=== PATIENT | female | born 1990 | race American Indian/Alaskan Native ===

== ENCOUNTER 2019-07-11 09:37 | Emergency (ER) | payer SELFPAY ==
[2019-07-11 09:42] VITALS: BP 125/76
[2019-07-11 10:16] LABS: Basophils % (Auto) 0.4 % (0.0-1.8); Eosinophils # (Auto) 0.1 K/mm3 (0.0-0.4); Eosinophils % (Auto) 0.7 % (0.0-4.3); Hematocrit 43.8 % (30.3-42.9); Hemoglobin 14.8 gm/dl (10.1-14.3); Lymphocytes # (Auto) 1.6 K/mm3 (1.2-5.4); Lymphocytes % (Auto) 14.4 % (13.4-35.0); Mean Corpuscular HGB Conc 34 % (30-34); Mean Corpuscular Volume 89 fl (79-97); Monocytes # (Auto) 0.7 K/mm3 (0.0-0.8); Monocytes % (Auto) 6.1 % (0.0-7.3); Platelet Count 282 K/mm3 (140-440); Red Blood Count 4.94 M/mm3 (3.65-5.03); Red Cell Distribution Width 13.3 % (13.2-15.2)
[2019-07-11] MEDS ORDERED: KETOROLAC 30 MG/1 ML INJ IM ONE (10:22)
[2019-07-11] MEDS ORDERED: HYDROcodone/ACETAMINOPHEN 5-325 MG TAB PO ONE (10:22)
--- NOTE | 2019-07-11 10:22 | Emergency Department Report ---
ED Female HPI - General Chief complaint: Vaginal Bleeding Stated complaint: ABD PAIN/VAGINAL BLEEDING 3 WKS Time Seen by Provider: 07/11/19 10:15 Source: patient Mode of arrival: Ambulatory Limitations: No Limitations - History of Present Illness Initial comments: Sandra is a 28 yo female with hx of severe menstrual cramps and irregular bleeding. She has had severe cramping iwth vaginal bleeding in the pelvic region since Sunday. Ibuprofen 400 mg dose takes away the pain. However the pain returns. Her mother had history of endometriosis. She says that she may have endometriosis. She has never been although she has had unprotect ed sex with her boyfriend for the last 5 years. Pain radiates to the back. MD Complaint: vaginal bleeding, pelvic pain -: Gradual, days(s) Severity: moderate Quality: cramping Consistency: constant Improves with: none Worsens with: none Are you Now?: No Associated Symptoms: vaginal bleeding - Related Data Previous Rx's Medication Instructions Recorded Last Taken Type traMADoL [Ultram 50 MG tab] 50 mg PO Q6HR PRN #10 tablet 07/11/19 Unknown Rx Allergies Allergy/AdvReac Type Severity Reaction Status Date / Time amoxicillin AdvReac Swelling Verified 07/11/19 09:38 ED Review of Systems ROS: Stated complaint: ABD PAIN/VAGINAL BLEEDING 3 WKS Other details as noted in HPI Comment: All other systems reviewed and negative Constitutional: denies: fever, malaise Respiratory: denies: cough Gastrointestinal: abdominal pain. denies: nausea, vomiting Genitourinary: abnormal menses ED Past Medical Hx - Past Medical History Previous Medical History?: Yes Hx Psychiatric Treatment: Yes (anxiety, bipolar) - Surgical History Past Surgical History?: No - Family History Family history: diabetes, other (mother has history of endometriosis) - Social History Smoking Status: Former Smoker Substance Use Type: None - Medications Home Medications: Home Medications Medication Instructions Recorded Confirmed Last Taken Type traMADoL [Ultram 50 MG tab] 50 mg PO Q6HR PRN #10 tablet 07/11/19 Unknown Rx ED Physical Exam - General Limitations: No Limitations General appearance: alert, in no apparent distress, other (appears well sitting crosslegged on stretcher ) - Head Head exam: Present: atraumatic, normocephalic - Eye Eye exam: Present: normal appearance - ENT ENT exam: Present: mucous membranes moist - Neck Neck exam: Present: normal inspection, full ROM. Absent: tenderness, m eningismus - Respiratory Respiratory exam: Present: normal lung sounds bilaterally. Absent: respiratory distress, rales, rhonchi - Cardiovascular Cardiovascular Exam: Present: regular rate, normal rhythm, normal heart sounds. Absent: systolic murmur, diastolic murmur, rubs, gallop - GI/Abdominal GI/Abdominal exam: Present: soft, normal bowel sounds. Absent: distended, tenderness, guarding, rebound - Extremities Exam Extremities exam: Present: normal inspection - Neurological Exam Neurological exam: Present: alert, oriented X3 - Psychiatric Psychiatric exam: Present: normal affect, normal mood - Skin Skin exam: Present: warm, dry, intact, normal color. Absent: rash ED Course Vital Signs 07/11/19 09:40 Temperature 97.8 F Pulse Rate 74 Respiratory 16 Rate Blood Pressure 125/76 O2 Sat by Pulse 98 Oximetry ED Medical Decision Making - Lab Data Result diagrams: 07/11/19 10:05 Laboratory Results - last 24 hr 07/11/19 07/11/19 10:05 10:05 WBC 11.1 H RBC 4.94 Hgb 14.8 H Hct 43.8 H MCV 89 MCH 30 MCHC 34 RDW 13.3 Plt Count 282 Lymph % (Auto) 14.4 Pepin % (Auto) 6.1 Eos % (Auto) 0.7 Baso % (Auto) 0.4 Lymph # 1.6 Pepin # 0.7 Eos # 0.1 Baso # 0.0 Seg Neutrophils % 78.4 H Seg Neutrophils # 8.7 H HCG, Qual Negative - Medical Decision Making Ms. Cisse appears well. CBC within normal limits. No abdominal tenderness on exam. Serum test is negative. Differential diagnosis includes: Dysmenorrhea, endometriosis, uterine fibroids, ovarian cysts. I do not suspect appendicitis, PID, ovarian torsion after my physical exam and history taking. Referred to make up man. Referred to outside clinic. She verbalized understanding of return precautions. Critical care attestation.: If time is entered above; I have spent that time in minutes in the direct care of this critically ill patient, excluding procedure time. ED Disposition Clinical Impression: Dysmenorrhea, Dysfunctional uterine bleeding Disposition: - TO HOME OR SELFCARE Is pt being admited?: No Does the pt Need Aspirin: No Condition: Stable Instructions: Dysfunctional Uterine Bleeding (ED), Dysmenorrhea (ED) Prescriptions: traMADoL [Ultram 50 MG tab] 50 mg PO Q6HR PRN #10 tablet PRN Reason: Pain Referrals: FLAKITA SALEEM MD [Staff Physician] - 3-[facility] Days [facility] - [facility]-5 Days Forms: Work/School Release Form(ED)
[2019-07-11 11:16] LABS: Bacteria,Urine 1+ /HPF (Negative); Bilirubin,Urine NEG (Negative); Blood,Urine MOD (Negative); Color,Urine Yellow (Yellow); Mucus,Urine FEW /HPF; Urobilinogen,Urine < 2.0 mg/dL (<2.0)
[2019-07-11 11:21] LABS: WBC,Urine > 182.0 /HPF (0.0-6.0)
== END 2019-07-11 11:25 | disposition home or self-care (01) ==
LOC: ED 09:37
DX: N94.6 Dysmenorrhea, unspecified (principal); F41.9 Anxiety disorder, unspecified; F31.9 Bipolar disorder, unspecified; Z87.891 Personal history of nicotine dependence; Z79.899 Other long term (current) drug therapy; Z88.1 Allergy status to other antibiotic agents
CPT/HCPCS: 36415; 81001; 84703; 85025; 96372; 99283; J1885

== ENCOUNTER 2020-08-23 16:31 | Emergency (ER) | payer SELFPAY ==
[2020-08-23 17:39] VITALS: BP 121/44
--- NOTE | 2020-08-23 18:07 | Event Note ---
ED Screening Note Date of service: 08/23/20 Time: 18:06 ED Screening Note: 30-year-old -Senegales[place] female presents to the emergency room complaining of pelvic pain spotting and now vaginal bleeding since June 2020. Patient states she has been taking ibuprofen 800 mg. Patient denies any nausea no vomiting no fever no chills and no vaginal discharge. Patient states that he started off spotting and now she is going through about 6 pads a day. Patient has never been . She has a past medical history of anxiety and bipolar currently on no medications. She denies any SI or HI. She has never been institutionalized. She does not have a primary care provider or VP SALES provider and is not followed by mental health. This initial assessment/diagnostic orders/clinical plan/treatment(s) is/are subject to change based on patients health status, clinical progression and re- assessment by fellow clinical providers in the ED. Further treatment and workup at subsequent clinical providers discretion. Patient/guardian urged not to elope from the ED as their condition may be serious if not clinically assessed and managed. Initial orders include:
[2020-08-23 18:56] LABS: Basophils # (Auto) 0.1 K/mm3 (0.0-0.1); Basophils % (Auto) 0.6 % (0.0-1.8); Eosinophils # (Auto) 0.2 K/mm3 (0.0-0.4); Eosinophils % (Auto) 1.9 % (0.0-4.3); Hematocrit 42.3 % (30.3-42.9); Hemoglobin 14.1 gm/dl (10.1-14.3); Lymphocytes # (Auto) 3.6 K/mm3 (1.2-5.4); Lymphocytes % (Auto) 37.6 % (13.4-35.0); Mean Corpuscular HGB Conc 33 % (30-34); Mean Corpuscular Volume 90 fl (79-97); Monocytes # (Auto) 0.8 K/mm3 (0.0-0.8); Monocytes % (Auto) 7.9 % (0.0-7.3); Platelet Count 285 K/mm3 (140-440); Red Blood Count 4.73 M/mm3 (3.65-5.03); Red Cell Distribution Width 13.1 % (13.2-15.2)
[2020-08-23 19:00] LABS: Bilirubin,Urine NEG (Negative); Blood,Urine LG (Negative); Color,Urine Yellow (Yellow); Mucus,Urine 3+ /HPF
[2020-08-23 19:08] LABS: Alanine Aminotransferase 9 units/L (7-56); Albumin 4.4 g/dL (3.9-5); Blood Urea Nitrogen 9 mg/dL (7-17); Hemolysis Index 31
[2020-08-23 19:10] LABS: BUN/Creatinine Ratio 15
--- NOTE | 2020-08-23 19:39 | Emergency Department Report ---
ED Female HPI - General Chief complaint: Vaginal Bleeding Stated complaint: MENSTRAL PAIN/BLEEDING SINCE JUNE Time Seen by Provider: 08/23/20 18:05 Source: patient Mode of arrival: Ambulatory Limitations: No Limitations - History of Present Illness Initial comments: 30-year-old -Moroc[place] female presents to the emergency room complaining of pelvic pain spotting and now vaginal bleeding since June 2020. Patient states she has been taking ibuprofen 800 mg. Patient denies any nausea no vomiting no fever no chills and no vaginal discharge. Patient states that he started off spotting and now she is going through about 6 pads a day. Patient has never been . She has a past medical history of anxiety and bipolar currently on no medications. She denies any SI or HI. She has never been institutionalized. She does not have a primary care provider or [facility] provider and is not followed by mental health. Onset/Timin -: month(s) Location: suprapubic Severity: mild Quality: cramping Consistency: intermittent Improves with: none Worsens with: none Are you Now?: No Last Menstrual Period: 06/06/20 EDC: 03/13/21 Associated Symptoms: vaginal bleeding, abdominal pain. denies: vaginal discharge, nausea/vomiting, fever/chills, headaches, dysuria, shortness of breath, weakness - Related Data : 0 Previous Rx's Medication Instructions Recorded Last Taken Type traMADoL [Ultram 50 MG tab] 50 mg PO Q6HR PRN #10 tablet 07/11/19 Unknown Rx Allergies Allergy/AdvReac Type Severity Reaction Status Date / Time amoxicillin AdvReac Swelling Verified 07/11/19 09:38 ED Review of Systems ROS: Stated complaint: MENSTRAL PAIN/BLEEDING SINCE JUNE Other details as noted in HPI Comment: All other systems reviewed and negative ED Past Medical Hx - Past Medical History Previous Medical History?: No Hx Psychiatric Treatment: Yes (anxiety, bipolar) - Surgical History Past Surgical History?: No - Social History Smoking Status: Never Smoker - Medications Home Medications: Home Medications Medication Instructions Recorded Confirmed Last Taken Type traMADoL [Ultram 50 MG tab] 50 mg PO Q6HR PRN #10 tablet 07/11/19 Unknown Rx ED Physical Exam - General Limitations: No Limitations General appearance: alert - Head Head exam: Present: atraumatic, normocephalic - Eye Eye exam: Present: normal appearance - ENT ENT exam: Present: mucous membranes moist - Neck Neck exam: Present: normal inspection - Respiratory Respiratory exam: Present: normal lung sounds bilaterally. Absent: respiratory distress - Cardiovascular Cardiovascular Exam: Present: regular rate, normal rhythm. Absent: systolic murmur, diastolic murmur, rubs, gallop - GI/Abdominal GI/Abdominal exam: Present: soft, normal bowel sounds ED Course Vital Signs 08/23/20 17:33 Temperature 98.2 F Pulse Rate 64 Respiratory 20 Rate Blood Pressure 121/44 O2 Sat by Pulse 99 Oximetry ED Medical Decision Making - Lab Data Result diagrams: 08/23/20 18:28 08/23/20 18:28 - Medical Decision Making 30-year-old -[place]oc[place] female presents to the emergency room complaining of pelvic pain spotting and now vaginal bleeding since June 2020. Patient states she has been taking ibuprofen 800 mg. Patient denies any nausea no vomiting no fever no chills and no vaginal discharge. Patient states that he started off spotting and now she is going through about 6 pads a day. Patient has never been . She has a past medical history of anxiety and bipolar currently on no medications. She denies any SI or HI. She has never been institutionalized. She does not have a primary care provider or [facility] CONTROL [facility]IST provider and is not followed by mental health. Labs are stable and nonactionable. Patient can follow-up with S[facility] CONTROL SPECIALIST. Critical care attestation.: If time is entered above; I have spent that time in minutes in the direct care of this critically ill patient, excluding procedure time. ED Disposition Clinical Impression: Dysmenorrhea, unspecified Disposition: - TO HOME OR SELFCARE Is pt being admited?: No Does the pt Need Aspirin: No Condition: Stable Instructions: Dysmenorrhea, [id number] Additional Instructions: Labs are all negative urinalysis is negative. There is no signs of anemia negative recommend to follow-up with a SENIOR [facility] CONTROL SPECIALIST or primary care provider. Can take Tylenol or ibuprofen as needed for pain. Referrals: PRIMARY CARE [Primary Care Provider] - 3-5 Days [facility] [Provider Group] - 3-5 Days [facility] [Provider Group] - 3-5 Days [facility] [Provider Group] - 3-5 Days Forms: Work/School Release Form(ED)
== END 2020-08-23 19:45 | disposition home or self-care (01) ==
LOC: ED 16:31
DX: N94.6 Dysmenorrhea, unspecified (principal); F41.9 Anxiety disorder, unspecified; F31.9 Bipolar disorder, unspecified; Z79.899 Other long term (current) drug therapy; Z88.2 Allergy status to sulfonamides
CPT/HCPCS: 36415; 80053; 81001; 84702; 85025; 99283

== ENCOUNTER 2020-08-25 16:10 | Emergency (ER) | payer SELFPAY ==
--- NOTE | 2020-08-25 16:42 | Emergency Department Report ---
Blank Doc - Documentation Documentation: 30-year-old female that presents with abdominal pain with nausea vomiting. 1- This initial assessment/diagnostic orders/clinical plan/ treatment(s) is/are subject to change based on pt's health status, clinical progression and re- assessment by fellow clinical providers in the ED. Further treatment and workup at subsequent clinical provers discretion. Patient/guardians urged not to elope from ED as their condition may be serious if not clinically assessed and managed. 2-labs 3-UA
[2020-08-25 18:17] LABS: Bilirubin,Urine NEG (Negative); Blood,Urine LG (Negative); Color,Urine Yellow (Yellow); Mucus,Urine FEW /HPF
[2020-08-25] MEDS ORDERED: SODIUM CHLORIDE 0.9% 1000 ML 1,000 ML IV ONE (21:08)
[2020-08-25] MEDS ORDERED: ONDANSETRON 4 MG/2 ML INJ IV STA ×2 (21:08→23:58)
[2020-08-25 21:16] LABS: Basophils % (Auto) 0.4 % (0.0-1.8); Hemoglobin 14.5 gm/dl (10.1-14.3); Lymphocytes # (Auto) 0.9 K/mm3 (1.2-5.4); Mean Corpuscular HGB Conc 35 % (30-34); Mean Corpuscular Volume 89 fl (79-97); Monocytes # (Auto) 0.4 K/mm3 (0.0-0.8); Monocytes % (Auto) 4.8 % (0.0-7.3); Platelet Count 269 K/mm3 (140-440); Red Blood Count 4.75 M/mm3 (3.65-5.03); Red Cell Distribution Width 12.6 % (13.2-15.2)
--- NOTE | 2020-08-25 21:22 | Emergency Department Report ---
ED Abdominal Pain HPI - General Chief Complaint: Nausea/Vomiting/Diarrhea Stated Complaint: FOOD POISONING Time Seen by Provider: 08/25/20 16:29 Source: patient Mode of arrival: Ambulatory Limitations: No Limitations - History of Present Illness MD Complaint: abdominal pain - Related Data Previous Rx's Medication Instructions Recorded Last Taken Type traMADoL [Ultram 50 MG tab] 50 mg PO Q6HR PRN #10 tablet 07/11/19 Unknown Rx Acetaminophen/Codeine [Tylenol #3] 1 tab PO Q6H PRN #15 tab 08/25/20 Unknown Rx Ondansetron [Zofran ODT TAB] 8 mg PO Q12HR #14 tab.rapdis 08/25/20 Unknown Rx Allergies Allergy/AdvReac Type Severity Reaction Status Date / Time amoxicillin AdvReac Swelling Verified 08/25/20 16:31 ED Review of Systems ROS: Stated complaint: FOOD POISONING Other details as noted in HPI Comment: All other systems reviewed and negative ED Past Medical Hx - Past Medical History Hx Psychiatric Treatment: Yes (anxiety, bipolar) - Surgical History Past Surgical History?: No - Social History Smoking Status: Never Smoker - Medications Home Medications: Home Medications Medication Instructions Recorded Confirmed Last Taken Type traMADoL [Ultram 50 MG tab] 50 mg PO Q6HR PRN #10 tablet 07/11/19 Unknown Rx Acetaminophen/Codeine [Tylenol #3] 1 tab PO Q6H PRN #15 tab 08/25/20 Unknown Rx Ondansetron [Zofran ODT TAB] 8 mg PO Q12HR #14 tab.rapdis 08/25/20 Unknown Rx ED Physical Exam - General Limitations: No Limitations General appearance: alert, in no apparent distress - Head Head exam: Present: atraumatic, normocephalic - Eye Eye exam: Present: normal appearance - ENT ENT exam: Present: mucous membranes moist - Neck Neck exam: Present: normal inspection - Respiratory Respiratory exam: Present: normal lung sounds bilaterally. Absent: respiratory distress - Cardiovascular Cardiovascular Exam: Present: regular rate, normal rhythm. Absent: systolic murmur, diastolic murmur, rubs, gallop - GI/Abdominal GI/Abdominal exam: Present: soft, tenderness, normal bowel sounds, other (Vague diffuse tenderness no tenderness at McBurney's, no Campbell sign,). Absent: guarding, hyperactive bowel sounds, organomegaly - Extremities Exam Extremities exam: Present: normal inspection - Back Exam Back exam: Present: normal inspection - Neurological Exam Neurological exam: Present: alert, oriented X3 - Psychiatric Psychiatric exam: Present: normal affect, normal mood - Skin Skin exam: Present: warm, dry, intact, normal color. Absent: rash ED Course Vital Signs 08/25/20 08/25/20 16:34 16:35 Temperature 99.3 F Pulse Rate 86 Respiratory 18 Rate Blood Pressure 122/72 O2 Sat by Pulse 95 Oximetry Critical care attestation.: If time is entered above; I have spent that time in minutes in the direct care of this critically ill patient, excluding procedure time. ED Disposition Condition: Stable Referrals: PRIMARY CARE, [Primary Care Provider] - 3-5 Days
[2020-08-25 21:38] LABS: Alanine Aminotransferase 10 units/L (7-56); Albumin 4.9 g/dL (3.9-5); Blood Urea Nitrogen 13 mg/dL (7-17); Calcium 9.3 mg/dL (8.4-10.2); Hemolysis Index 4
[2020-08-25 21:39] LABS: BUN/Creatinine Ratio 26
[2020-08-25] MEDS ORDERED: MORPHINE 4 MG/1 ML INJ IV STA (22:06)
[2020-08-25] MEDS ORDERED: LORazepam 2 MG/ML VIAL IV ONE (22:06)
[2020-08-25 22:22] VITALS: BP 108/77
--- NOTE | 2020-08-25 22:56 | XRay Report ---
CHEST 2 VIEWS INDICATION / CLINICAL INFORMATION: sob. COMPARISON: 06/03/2007. FINDINGS: SUPPORT DEVICES: None. HEART / MEDIASTINUM: No significant abnormality. LUNGS / PLEURA: No significant pulmonary or pleural abnormality. No pneumothorax. ADDITIONAL FINDINGS: No significant additional findings. IMPRESSION: 1. No acute findings. Signer Name: Zachary Lozano MD Signed: 08/25/2020 10:51 PM Workstation Name: [id number]
== END 2020-08-26 00:10 | disposition home or self-care (01) ==
LOC: ED 16:10
DX: A05.9 Bacterial foodborne intoxication, unspecified (principal); F31.9 Bipolar disorder, unspecified; F41.9 Anxiety disorder, unspecified; Z88.0 Allergy status to penicillin; Z79.899 Other long term (current) drug therapy
CPT/HCPCS: 36415; 71046; 80053; 81001; 83690; 84703; 85025; 87086; 96361; 96374; 96375; 96376; 99284; J2060; J2270; J2405; J7030

== ENCOUNTER 2021-08-13 16:00 | Emergency (ER) | payer SELFPAY ==
--- NOTE | 2021-08-13 16:40 | Emergency Department Report ---
HPI - General Chief Complaint: Urogenital-Female Time Seen by Provider: 08/13/21 16:11 - HPI HPI: 31-year-old female with history of PCOS and asthma presents complaining of 1 month of irregular menses, urinary frequency, and vaginal itching. The patient states that she has a history of irregular menses although for the past month she has been bleeding persistently. She states that some days it is heavy requiring several pads per day and other times it is just spotting. For the past 2 days it has been spotting. She reports she has had similar presentations in the past which were discovered to be due to urinary tract infections. She denies any dysuria or vaginal discharge. In addition, she denies any associated fever/chills, headache, chest pain, back pain, abdominal pain, back pain, nausea/vomiting, focal weakness, sensory changes, or any other complaints. She is not vaccinated against COVID-19. ED Past Medical Hx - Past Medical History Previous Medical History?: Yes Hx Psychiatric Treatment: Yes (anxiety, bipolar) Additional medical history: PCOS, asthma - Social History Smoking Status: Never Smoker - Medications Home Medications: Home Medications Medication Instructions Recorded Confirmed Last Taken Type traMADoL [Ultram 50 MG tab] 50 mg PO Q6HR PRN #10 tablet 07/11/19 Unknown Rx Acetaminophen/Codeine [Tylenol #3] 1 tab PO Q6H PRN #15 tab 08/25/20 Unknown Rx Ondansetron [Zofran ODT TAB] 8 mg PO Q12HR #14 tab.rapdis 08/25/20 Unknown Rx Albuterol Sulfate [Proventil Hfa] 6.7 gm IH Q6H PRN #1 inh 08/13/21 Unknown Rx Sulfamethoxazole/Trimethoprim 1 each PO BID #14 08/13/21 Unknown Rx [Bactrim DS TAB] metroNIDAZOLE [Flagyl] 500 mg PO BID #14 tab 08/13/21 Unknown Rx ED Review of Systems ROS: Stated complaint: UTI S/S Other details as noted in HPI Comment: All other systems reviewed and negative Constitutional: denies: chills, fever Eyes: denies: eye pain, vision change ENT: denies: throat pain, congestion Respiratory: denies: cough, shortness of breath Cardiovascular: denies: chest pain, palpitations Gastrointestinal: denies: abdominal pain, nausea, vomiting, diarrhea Genitourinary: frequency, abnormal menses. denies: dysuria, discharge Musculoskeletal: denies: back pain, arthralgia Skin: denies: rash, lesions Neurological: denies: headache, weakness Physical Exam - Physical Exam Vital Signs: Vital Signs 08/13/21 08/13/21 16:03 16:05 Temperature 98.7 F Pulse Rate 80 Respiratory 18 Rate Blood Pressure 131/83 O2 Sat by Pulse 99 Oximetry Physical Exam: GENERAL: Well developed and well nourished. No acute distress HEAD: Normocephalic. No obvious signs of trauma. ENT: Slightly dry mucous membranes. EYES: Extraocular movements are intact. Pupils are equal round and reactive to light bilaterally NECK: Supple. Full ROM is intact. Trachea is midline. LUNGS: Nonlabored breathing. Equal chest rise bilaterally. Clear to auscultation bilaterally. CARDIOVASCULAR: Regular rate and rhythm. No murmurs or rubs. VASCULAR: Cap refill < 2 seconds ABDOMEN: Abdomen is soft and nondistended. There is no significant tenderness, guarding or rebound. SKIN: Skin is warm and dry NEURO: Patient is awake, alert, and oriented. wire hanger II-XII grossly intact. No focal deficits. Normal motor and sensory exam throughout. Normal speech. MUSCULOSKELETAL: No obvious deformities. No significant tenderness. Normal ROM throughout. BACK/SPINE: No midline tenderness or step-offs of the C/T/L spine. No costovertebral angle tenderness. ED Course Vital Signs 08/13/21 08/13/21 16:03 16:05 Temperature 98.7 F Pulse Rate 80 Respiratory 18 Rate Blood Pressure 131/83 O2 Sat by Pulse 99 Oximetry ED Medical Decision Making - Lab Data Lab Results 08/13/21 Range/Units Unknown Urine Color Yellow (Yellow) Urine Turbidity Slightly-cloudy (Clear) Urine pH 6.0 (5.0-7.0) Ur Specific [place] 1.017 (1.003-1.030) Urine Protein <15 mg/dl (Negative) mg/dL Urine Glucose (UA) Neg (Negative) mg/dL Urine Ketones Tr (Negative) mg/dL Urine Blood Sm (Negative) Urine Nitrite Neg (Negative) Urine Bilirubin Neg (Negative) Urine Urobilinogen 2.0 (<2.0) mg/dL Ur Leukocyte Esterase Tr (Negative) Urine WBC (Auto) 8.0 H (0.0-6.0) /HPF Urine RBC (Auto) 3.0 (0.0-6.0) /HPF U Epithel Cells (Auto) 8.0 (0-13.0) /HPF Urine Mucus 3+ /HPF Urine HCG, Qual Negative (Negative) - Medical Decision Making 31-year-old female with history of PCOS and irregular menses presents complaining of 1 month of irregular menstruation as well as vaginal itching and urinary frequency which patient states is similar to prior presentation of UTI. She is afebrile with normal vital signs. Physical examination is benign. There is no abdominal or pelvic tenderness. Patient is refusing any labs. I have ordered urinalysis and urine test. Pelvic examination was performed with VIVIAN Peoples present as word processing operator. There is scant dried blood seen in the posterior fornix of the vagina. No lacerations or abnormal discharge. The os is visualized and is closed without active bleeding. No adnexal tenderness bilaterally. Urinalysis reveals only slightly elevated WBCs of 8 with 8 squamous epithelial cells. Urine is negative. Although this does not definitively prove UTI, given patient's prior experiences with UTIs I will prescribe Bactrim. In addition, given the vaginal itching we will treat with Flagyl for 7 days for bacterial vaginosis. The patient was encouraged to follow-up with her DEHORNER closely. She asked for refill of her albuterol inhaler which I will provide. I also encouraged her to undergo full STI/STD testing. She expressed understanding and agreement with this plan of care. Critical care attestation.: If time is entered above; I have spent that time in minutes in the direct care of this critically ill patient, excluding procedure time. ED Disposition Clinical Impression: UTI (urinary tract infection), Abnormal uterine bleeding, Bacterial vaginosis Disposition: HOME / SELF CARE / HOMELESS Is pt being admited?: No Condition: Stable Instructions: Abnormal Uterine Bleeding, Bacterial Vaginosis, Urinary Tract Infection, Adult, Bacterial Vaginosis (ED) Additional Instructions: Please follow-up closely with your DEHORNER. Return to the emergency department for any emergency health concerns. Prescriptions: Sulfamethoxazole/Trimethoprim [Bactrim DS TAB] 1 each PO BID #14 metroNIDAZOLE [Flagyl] 500 mg PO BID #14 tab Albuterol Sulfate [Proventil Hfa] 6.7 gm IH Q6H PRN #1 inh PRN Reason: Wheezing Referrals: PRIMARY CARE, [Primary Care Provider] - 3-5 Days Forms: STI Treatment and Prevention
[2021-08-13 17:25] LABS: Bilirubin,Urine NEG (Negative); Blood,Urine SM (Negative); Color,Urine Yellow (Yellow); Mucus,Urine 3+ /HPF; Protein,Urine <15 mg/dL mg/dL (Negative)
[2021-08-13 17:40] LABS: HCG Qualitative,Urine Negative (Negative)
[2021-08-13 18:15] VITALS: BP 137/86
== END 2021-08-13 18:18 | disposition home or self-care (01) ==
LOC: ED 16:00
DX: N39.0 Urinary tract infection, site not specified (principal); N93.9 Abnormal uterine and vaginal bleeding, unspecified; N76.0 Acute vaginitis; J45.909 Unspecified asthma, uncomplicated; F31.9 Bipolar disorder, unspecified
CPT/HCPCS: 81001; 81025; 99283